=== PATIENT | male | born 1940 | race Caucasian/White ===

== ENCOUNTER → 2017-07-07 | Outpatient (CLI) | payer MEDICARE ==
[2017-07-07 10:11] LABS: ALANINE AMINOTRANSFERASE 36 U/L (21-72); ALBUMIN 4.5 g/dL (3.5-5.0); ALKALINE PHOSPHATASE 70 U/L (38-126); ANION GAP 13 (5-19); ASPARTATE AMINO TRANSFERASE 36 U/L (17-59); BILIRUBIN,DIRECT 0.4 mg/dL (0.0-0.4); BILIRUBIN,TOTAL 1.4 mg/dL (0.2-1.3); BLOOD UREA NITROGEN 18 mg/dL (7-20); CALCIUM 10.1 mg/dL (8.4-10.2); CARBON DIOXIDE 27 mmol/L (22-30); CHLORIDE 97 mmol/L (98-107); CHOLESTEROL 122.11 mg/dL (0-200); CREATININE RESULT 0.96 mg/dL (0.52-1.25); Direct HDL 41 mg/dL (>40); GLUCOSE 92 mg/dL (75-110); POTASSIUM 4.9 mmol/L (3.6-5.0); TOTAL PROTEIN 7.8 g/dL (6.3-8.2); TRIGLYCERIDES 142 mg/dL (<150)
[2017-07-07 10:22] LABS: DIRECT LDL 56 mg/dL (<100)
== END ==
LOC: OD 08:41
PROVIDERS: ATTEND Internal Medicine Cardiovascular Disease
DX: E78.00 Pure hypercholesterolemia, unspecified (principal); I10 Essential (primary) hypertension; E13.9 Other specified diabetes mellitus without complications; Z79.899 Other long term (current) drug therapy
CPT/HCPCS: 36415; 80048; 80061; 80076; 83036; 83735; 84443

== ENCOUNTER 2018-05-08 07:53 | Observation (INO) | payer MEDICARE ==
[2018-05-08 08:43] LABS: ABSOLUTE LYMPHOCYTES (AUTO) 0.9 10^3/uL (0.5-4.7); ABSOLUTE MONOCYTES (AUTO) 1.3 10^3/uL (0.1-1.4); ABSOLUTE NEUT (AUTO) 9.7 10^3/uL (1.7-8.2); BASOPHILS % (AUTO) 0.3 % (0-2); HEMATOCRIT 36.8 % (37.9-51.0); HEMOGLOBIN 12.5 g/dL (13.5-17.0); LYMPHOCYTES % (AUTO) 7.5 % (13-45); MEAN CORPUSCULAR HEMOGLOBIN 32.5 pg (27.0-33.4); MEAN CORPUSCULAR HGB CONC 34.1 g/dL (32.0-36.0); MEAN CORPUSCULAR VOLUME 95 fl (80-97); PLATELET COUNT 196 10^3/uL (150-450); RED BLOOD COUNT 3.86 10^6/uL (4.35-5.55); SEGMENTED NEUTROPHILS % (AUTO) 81.2 % (42-78); TOTAL CELLS COUNTED % (AUTO) 100 %
--- NOTE | 2018-05-08 08:50 | RADIOLOGY REPORT (SQ) ---
EXAM DESCRIPTION: CT HEAD WITHOUT COMPLETED DATE/TIME: 05/08/2018 8:19 am REASON FOR STUDY: AMS COMPARISON: None. TECHNIQUE: Axial images acquired through the brain without intravenous contrast. Images reviewed wi th bone, brain and subdural windows. Additional sagittal and coronal reconstructions were generated. Images stored on PACS. All CT scanners at this facility use dose modulation, iterative reconstruction, and/or weight based d osing when appropriate to reduce radiation dose to as low as reasonably achievable (ALARA). [facility]: Dose Right [facility]: CareDose [facility]: Dose Right [facility]: Teradose 4D [facility]: Clique Intelligence RADIATION DOSE: CT Rad equipment meets quality standard of care and radiation dose reduction techniq ues were employed. CTDIvol: 53.2 mGy. DLP: 1017 mGy-cm. mGy. LIMITATIONS: None. FINDINGS: VENTRICLES: Normal size and contour. The cisterns are patent. CEREBRUM: Chronic mild small vessel ischemic changes. No masses. No hemorrhage. No midline shift. No evidence for acute infarction CEREBELLUM: No masses. No hemorrhage. No alteration of density. No evidence for acute infarction. EXTRAAXIAL SPACES: Mild age related involutional changes. No fluid collections. No masses. ORBITS AND GLOBE: No intra- or extraconal masses. Normal contour of globe without masses. CALVARIUM: No fracture. PARANASAL SINUSES: No fluid or mucosal thickening. SOFT TISSUES: No mass or hematoma. OTHER: No other significant finding. IMPRESSION: 1. No acute intracranial abnormality. 2. Mild atrophy and chronic small vessel ischemic changes. EVIDENCE OF ACUTE STROKE: NO. COMMENT: Quality ID # [id number]: Final reports with documentation of one or more dose reduction techniques (e.g., Automated exposure control, adjustment of the mA and/or kV according to patient size, use of iterative reconstruction technique) TECHNICAL DOCUMENTATION: JOB ID: [id number] [email or web address]- All Rights Reserved Reading location - IP/workstation name: [email or web address]
--- NOTE | 2018-05-08 08:52 | RADIOLOGY REPORT (SQ) ---
EXAM DESCRIPTION: CHEST SINGLE VIEW COMPLETED DATE/TIME: 05/08/2018 8:08 am REASON FOR STUDY: bed 16 sepsis protocol COMPARISON: None. EXAM PARAMETERS: NUMBER OF VIEWS: One view. TECHNIQUE: Single frontal radiographic view of the chest acquired. RADIATION DOSE: NA LIMITATIONS: None. FINDINGS: LUNGS AND PLEURA: Slight scarring or atelectasis at the left lung base. No acute pulmona ry consolidation. No pneumothorax or pleural effusion. MEDIASTINUM AND HILAR STRUCTURES: No masses. Contour normal. HEART AND VASCULAR STRUCTURES: Heart normal in size. Normal vasculature. BONES: No acute findings. HARDWARE: None in the chest. OTHER: No other significant finding. IMPRESSION: 1. Slight atelectasis or scarring at the left base. 2. No acute pulmonary consolidation. TECHNICAL DOCUMENTATION: JOB ID: [id number] [employer]- All Rights Reserved Reading location - IP/workstation name: [email or web address]
[2018-05-08 08:53] LABS: INTERNATIONAL RATION (INR) 1.08; PROTHROMBIN TIME 14.6 SEC (11.4-15.4)
[2018-05-08 09:01] LABS: ALANINE AMINOTRANSFERASE 25 U/L (21-72); ALBUMIN 3.6 g/dL (3.5-5.0); ALKALINE PHOSPHATASE 61 U/L (38-126); ANION GAP 9 (5-19); ASPARTATE AMINO TRANSFERASE 29 U/L (17-59); BILIRUBIN,DIRECT 0.4 mg/dL (0.0-0.4); BILIRUBIN,TOTAL 1.2 mg/dL (0.2-1.3); BLOOD UREA NITROGEN 20 mg/dL (7-20); CALCIUM 8.6 mg/dL (8.4-10.2); CARBON DIOXIDE 25 mmol/L (22-30); CHLORIDE 98 mmol/L (98-107); GLUCOSE 143 mg/dL (75-110); POTASSIUM 3.8 mmol/L (3.6-5.0)
[2018-05-08] MEDS ORDERED: NORMAL SALINE 1000 ML 1,000 ML IV ONE (09:25)
[2018-05-08] MEDS ORDERED: CEFTRIAXONE INJ 1000 MG VIAL IV ONE (09:57)
--- NOTE | 2018-05-08 10:24 | ER Document Report ---
ED General - General Chief Complaint: Nausea/Vomiting Stated Complaint: VOMITING Time Seen by Provider: 05/08/18 09:23 TRAVEL OUTSIDE OF THE [place] IN LAST 30 DAYS: No - HPI Notes: Patient is a 77-year-old male that presents to the emergency department for chief complaint of lightheadedness and diaphoresis. Patient's family states that this morning he appeared to be diaphoretic and was slumping over in his chair. They denied any full loss of consciousness. Patient was hypotensive when his family member took his blood pressure with a systolic in the 80s. EMS was called and had a blood pressure reading of 83/56 at home. After receiving 250 mL of IV normal saline patient states he is feeling better. He reports one episode of emesis while in transport. He states his lightheadedness is worse when he stands up. He does report not feeling well recently and may have had a fever last night. He denies any chest pain, cough, shortness of breath, abdominal pain, dysuria and urinary frequency. Past Medical History: Diabetes, hypertension, hyperlipidemia Past Surgical History: Negative Social History: Denies drugs alcohol and tobacco Family History: Reviewed and noncontributory for presenting illness Allergies: Reviewed, see documented allergy list. REVIEW OF SYSTEMS: CONSTITUTIONAL : No fever No chills diaphoresis lightheadedness EENT: No vision changes No congestion No sore throat CARDIOVASCULAR: No chest pain No palpitations RESPIRATORY: No shortness of breath No cough No difficulty breathing GASTROINTESTINAL: No abdominal pain nausea vomiting No diarrhea GENITOURINARY: No dysuria No hematuria No difficulty urinating MUSCULOSKELETAL: No back pain No leg pain No arm pain SKIN: No rashes No lesions LYMPHATIC: No swollen, enlarged glands. NEUROLOGICAL: No lightheadedness No headache No weakness No paresthesias PSYCHIATRIC: No anxiety No depression PHYSICAL EXAMINATION: Vital signs reviewed, nursing noted reviewed. GENERAL: Mildly diaphoretic, ill-appearing HEAD: Atraumatic, normocephalic. EYES: Eyes appear normal, extraocular movements intact, sclera anicteric, conjunctiva are normal. ENT: nares patent, oropharynx clear without exudates. Moist mucous membranes. NECK: Normal range of motion, supple without lymphadenopathy LUNGS: Breath sounds clear to auscultation bilaterally and equal. No wheezes rales or rhonchi. HEART: Regular rate and rhythm without murmurs ABDOMEN: Soft, nontender, normoactive bowel sounds. No rebound, guarding, or rigidity. No masses appreciated. EXTREMITIES: Nontender, good range of motion, no pitting or edema. NEUROLOGICAL: No focal neurological deficits. Moves all extremities spontaneously Motor and sensory grossly intact on exam. PSYCH: Normal mood, normal affect. SKIN: Warm, Dry, normal turgor, no rashes or lesions noted on exposed skin - Related Data Allergies/Adverse Reactions: No Known Allergies Allergy (Unverified 04/17/13 11:42) Past Medical History - Social History Smoking Status: Unknown if Ever Smoked Chew tobacco use (# tins/day): No Frequency of alcohol use: None Drug Abuse: None Family History: Reviewed & Not Pertinent Patient has suicidal ideation: No Patient has homicidal ideation: No - Past Medical History Cardiac Medical History: Reports: Hx Hypertension - medication Denies: Hx Heart Attack Pulmonary Medical History: Denies: Hx Asthma Neurological Medical History: Denies: Hx Cerebrovascular Accident, Hx Seizures Renal/ Medical History: Denies: Hx Peritoneal Dialysis GI Medical History: Denies: Hx Hepatitis, Hx Hiatal Hernia, Hx Ulcer Infectious Medical History: Denies: Hx Hepatitis Past Surgical History: Denies: Hx Open Heart Surgery, Hx Pacemaker Review of Systems - Review of Systems Notes: Dictated Physical Exam - Vital signs Vitals: Temp 97.4 F 05/08/18 07:57 - Notes Notes: Dictated Course - Re-evaluation Re-evalutation: 05/08/18 10:24 Vitals reviewed. Patient's blood pressure is stabilized after IV hydration. He is still feeling lightheaded. Orthostatics negative. EKG shows no acute ischemia. Patient does have a WBC count of 12 and is meeting sepsis criteria. Chest x-ray shows no pneumonia. Patient was given Rocephin for possible urinary tract infection. Blood cultures were obtained. Lactate is normal. 05/08/18 11:37 On reevaluation patient is resting comfortably in the cot. He has no complaints at this time. He is still mildly diaphoretic. Patient has had a heart rate in the 60s and 70s since arrival. His blood pressure has improved with IV hydration. Upon reviewing notes patient had a heart rate of 21 per EMS. EKG today does not show any heart block and he has not had any recurrence of this bradycardia. Lab work is unremarkable. There is no urinary tract infection and his lactate is normal. They currently do not suspect that patient is septic. Patient will be admitted to the hospital for telemetry monitoring of his transient bradycardia and hypotension. Case discussed with Dr. Wagner who accepted admission. Patient and family in agreement with the plan. Laboratory 05/08/18 05/08/18 05/08/18 08:28 08:28 08:28 WBC 12.0 H RBC 3.86 L Hgb 12.5 L Hct 36.8 L MCV 95 MCH 32.5 MCHC 34.1 RDW 14.0 Plt Count 196 Seg Neutrophils % 81.2 H Lymphocytes % 7.5 L Monocytes % 11.0 Eosinophils % 0.0 Basophils % 0.3 Absolute Neutrophils 9.7 H Absolute Lymphocytes 0.9 Absolute Monocytes 1.3 Absolute Eosinophils 0.0 Absolute Basophils 0.0 PT 14.6 INR 1.08 Sodium 132.0 L Potassium 3.8 Chloride 98 Carbon Dioxide 25 Anion Gap 9 BUN 20 Creatinine 1.20 Est GFR ( Amer) > 60 Est GFR (Non-Af Amer) 59 L Glucose 143 H Lactic Acid Calcium 8.6 Total Bilirubin 1.2 Direct Bilirubin 0.4 Neonat Total Bilirubin Not Reportable Neonat Direct Bilirubin Not Reportable Neonat Indirect Bili Not Reportable AST 29 ALT 25 Alkaline Phosphatase 61 Troponin I Total Protein 7.0 Albumin 3.6 Urine Color Urine Appearance Urine pH Ur Specific [place] Urine Protein Urine Glucose (UA) Urine Ketones Urine Blood Urine Nitrite Urine Bilirubin Urine Urobilinogen Ur Leukocyte Esterase Urine WBC (Auto) Urine RBC (Auto) Urine Mucus (Auto) Urine Ascorbic Acid 05/08/18 05/08/18 05/08/18 08:28 09:01 10:37 WBC RBC Hgb Hct MCV MCH MCHC RDW Plt Count Seg Neutrophils % Lymphocytes % Monocytes % Eosinophils % Basophils % Absolute Neutrophils Absolute Lymphocytes Absolute Monocytes Absolute Eosinophils Absolute Basophils PT INR Sodium Potassium Chloride Carbon Dioxide Anion Gap BUN Creatinine Est GFR ( Amer) Est GFR (Non-Af Amer) Glucose Lactic Acid 1.5 Calcium Total Bilirubin Direct Bilirubin Neonat Total Bilirubin Neonat Direct Bilirubin Neonat Indirect Bili AST ALT Alkaline Phosphatase Troponin I < 0.012 Total Protein Albumin Urine Color YELLOW Urine Appearance CLEAR Urine pH 6.0 Ur Specific [place] 1.011 Urine Protein NEGATIVE Urine Glucose (UA) NEGATIVE Urine Ketones NEGATIVE Urine Blood NEGATIVE Urine Nitrite NEGATIVE Urine Bilirubin NEGATIVE Urine Urobilinogen NEGATIVE Ur Leukocyte Esterase NEGATIVE Urine WBC (Auto) 0 Urine RBC (Auto) 0 Urine Mucus (Auto) RARE Urine Ascorbic Acid NEGATIVE Head CT 05/08/18 00:00 IMPRESSION: 1. No acute intracranial abnormality. 2. Mild atrophy and chronic small vessel ischemic changes. EVIDENCE OF ACUTE STROKE: NO. Chest X-Ray 05/08/18 07:56 IMPRESSION: 1. Slight atelectasis or scarring at the left base. 2. No acute pulmonary consolidation. - Vital Signs Vital signs: Temp Pulse Resp BP Pulse Ox 97.4 F 66 21 H 116/49 L 99 05/08/18 07:57 05/08/18 09:17 05/08/18 09:10 05/08/18 09:17 05/08/18 09:10 - Laboratory Result Diagrams: 05/08/18 08:28 05/08/18 08:28 Laboratory results interpreted by me: 05/08/18 05/08/18 08:28 08:28 WBC 12.0 H RBC 3.86 L Hgb 12.5 L Hct 36.8 L Seg Neutrophils % 81.2 H Lymphocytes % 7.5 L Absolute Neutrophils 9.7 H Sodium 132.0 L Est GFR (Non-Af Amer) 59 L Glucose 143 H - EKG Interpretation by Me Additional EKG results interpreted by me: 05/08/18 10:25 0 850: Normal sinus rhythm, rate 64, normal axis, no ectopy, no ST elevation. Discharge - Discharge Clinical Impression: Transient hypotension, Bradycardia Vomiting Qualifiers: Vomiting type: unspecified Vomiting Intractability: non-intractable Nausea presence: with nausea Qualified Code(s): R11.2 - Nausea with vomiting, unspecified Condition: Stable Disposition: ADMITTED OBSERVATION Admitting Provider: Hospitalist Unit Admitted: Telemetry Referrals: TAMAR RUSH MD [Primary Care Provider] - Follow up as needed
[2018-05-08 11:03] LABS: APPEARANCE,URINE CLEAR; BILIRUBIN,URINE NEGATIVE (NEGATIVE); COLOR,URINE YELLOW; GLUCOSE, URINE NEGATIVE (NEGATIVE); KETONES,URINE NEGATIVE (NEGATIVE); LEUKOCYTE ESTERASE,URINE NEGATIVE (NEGATIVE); NITRITE,URINE NEGATIVE (NEGATIVE); PROTEIN,URINE NEGATIVE (NEGATIVE); URINE SPECIFIC GRAVITY 1.011; UROBILINOGEN,URINE NEGATIVE mg/dL (<2.0)
[2018-05-08] MEDS ORDERED: MAG HYDROX/AL HYDROX/SIMETH SUSP 30 ML UDCUP PO PRN (12:11)
[2018-05-08] MEDS ORDERED: ONDANSETRON HCL INJ/PF 4 MG/2 ML SDV IV PRN (12:11)
[2018-05-08] MEDS ORDERED: DEXTROSE 50%-WATER 25 GM/50 ML DISP.SYRIN IV PRN ×2 (12:23)
[2018-05-08] MEDS ORDERED: INSULIN LISPRO 100 UNIT/ML 3 ML VIAL SUBCUT PRN (12:23)
[2018-05-08] MEDS ORDERED: DEXTROSE 40% GEL 15 GM TUBE PO PRN ×2 (12:23)
[2018-05-08] MEDS ORDERED: GLUCAGON,HUMAN RECOMB 1 MG INJ IM PRN (12:23)
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
[2018-05-08] MEDS ORDERED: ENOXAPARIN SODIUM INJ 40 MG/0.4 ML DISP.SYRIN SUBCUT ONE (13:00)
--- NOTE | 2018-05-08 16:06 | EKG REPORT ---
SEVERITY:- NORMAL ECG - SINUS RHYTHM : Confirmed by: Kathleen Hall 08-May-2018 16:06:15
[2018-05-08] MEDS: RINGERS SOLUTION,LACTATED 1,000 ML IV PRN (17:38)
--- NOTE | 2018-05-08 19:42 | XCELERA REPORT ---
[address] [address] Transthoracic Echocardiogram Report Name: GRISELDA PERAZA Age: 77 yrs Gender: Male : 1940 Patient Status: Inpatient [address] Study Date: 05/08/2018 02:17 PM Procedure: A two-dimensional transthoracic echocardiogram with color flow and Doppler was performed. Study Quality: Fair. Reason For Study: Murmur History: MURMUR. Ordering Physician: DOLLY ARGUETA Performed By: Valerie Zhao Interpretation Summary Study Quality: Fair. The left ventricle is normal in size. There is normal left ventricular wall thickness. LV EF is > than 60% Left ventricular systolic function is normal. Doppler measurements suggest impaired left ventricular relaxation, which is associated with grade I/IV or mild diastolic dysfunction The left ventricular wall motion is normal. There is no thrombus. The right ventricle is normal in size and function. The right atrium is normal. The left atrial size is normal. The interatrial septum is intact with no evidence for an atrial septal defect. There is no evidence of mitral valve prolapse. There is no vegetation seen on the mitral valve. There is no mitral valve stenosis. There is a trace amount of mitral regurgitation There is no aortic valvular vegetation. There is mild aortic stenosis There is a peak gradient of 18.2 mm of Hg. There is no LVOT obstruction. There is a mild amount of aortic regurgitation There is no tricuspid stenosis. No tricuspid regurgitation. Unable to calculate RVSP due lack of TR jet. There is no pulmonic valvular stenosis. There is no pulmonic valvular regurgitation. The aortic root is normal size. There is no pericardial effusion. MMode/2D Measurements & Calculations RVDd: 3.1 cm LVIDd: 5.4 cm FS: 37.5 % Ao root diam: 3.1 cm IVSd: 0.73 cm LVIDs: 3.4 cm EDV(Teich): Ao root area: LVPWd: 0.81 cm 141.3 ml 7.4 cm2 ESV(Teich): 46.5 ml EF(Teich): 67.1 % LVOT diam: 2.0 cm EDV(MOD-sp4): SV(MOD-sp4): LVOT area: 75.6 ml 48.2 ml 3.2 cm2 ESV(MOD-sp4): 27.4 ml EF(MOD-sp4): 63.8 % Doppler Measurements & Calculations MV E max dav: MV dec slope: Ao V2 max: AI max dav: 67.6 cm/sec 353.0 cm/sec2 211.4 cm/sec 256.0 cm/sec MV A max dav: MV dec time: Ao max PG: AI max P.2 mmHg 77.5 cm/sec 0.19 sec 18.2 mmHg AI dec slope: MV E/A: 0.87 Ao V2 mean: 153.2 cm/sec2 143.3 cm/sec AI P1/2t: 489.6 msec Ao mean P.5 mmHg Ao V2 VTI: 41.9 cm ALONZO(I,D): 1.6 cm2 ALONZO(V,D): 1.5 cm2 LV V1 max PG: SV(LVOT): 66.1 ml PA V2 max: Pulm Sys Dav: 4.1 mmHg 84.9 cm/sec 66.6 cm/sec LV V1 mean PG: PA max PG: Pulm Levy Dav: 2.2 mmHg 2.9 mmHg 40.9 cm/sec LV V1 max: Pulm A Revs Dav: 101.1 cm/sec 27.4 cm/sec LV V1 mean: Pulm A Revs Dur: 70.9 cm/sec 0.11 sec LV V1 VTI: 20.6 cm Pulm S/D: 1.6 Left Ventricle The left ventricle is normal in size. There is normal left ventricular wall thickness. LV EF is > than 60%. Left ventricular systolic function is normal. Doppler measurements suggest impaired left ventricular relaxation, which is associated with grade I/IV or mild diastolic dysfunction. The left ventricular wall motion is normal. There is no thrombus. Right Ventricle The right ventricle is normal in size and function. Atria The right atrium is normal. The left atrial size is normal. The interatrial septum is intact with no evidence for an atrial septal defect. Mitral Valve There is no evidence of mitral valve prolapse. There is no vegetation seen on the mitral valve. There is no mitral valve stenosis. There is a trace amount of mitral regurgitation. Aortic Valve There is no aortic valvular vegetation. There is mild aortic stenosis. There is a peak gradient of 18.2 mm of Hg. There is no LVOT obstruction. There is a mild amount of aortic regurgitation. Tricuspid Valve There is no tricuspid stenosis. No tricuspid regurgitation. Unable to calculate RVSP due lack of TR jet. Pulmonic Valve There is no pulmonic valvular stenosis. There is no pulmonic valvular regurgitation. Great Vessels The aortic root is normal size. Effusions There is no pericardial effusion. : DOLLY ARGUETA Lakshmi
[2018-05-08] MEDS: FAMOTIDINE 20 MG TABLET PO SCH (21:18)
[2018-05-08] MEDS: ACETAMINOPHEN 325 MG TABLET PO PRN (21:35)
[2018-05-09] MEDS: ACETAMINOPHEN 325 MG TABLET PO PRN ×2 (01:55→20:33)
[2018-05-09 06:38] LABS: ABSOLUTE BASOPHILS # (AUTO) 0.1 10^3/uL (0.0-0.2); ABSOLUTE LYMPHOCYTES (AUTO) 1.4 10^3/uL (0.5-4.7); ABSOLUTE MONOCYTES (AUTO) 1.7 10^3/uL (0.1-1.4); ABSOLUTE NEUT (AUTO) 7.4 10^3/uL (1.7-8.2); BASOPHILS % (AUTO) 0.8 % (0-2); EOSINOPHILS % (AUTO) 0.4 % (0-6); HEMATOCRIT 36.2 % (37.9-51.0); HEMOGLOBIN 12.7 g/dL (13.5-17.0); LYMPHOCYTES % (AUTO) 12.8 % (13-45); MEAN CORPUSCULAR HEMOGLOBIN 33.1 pg (27.0-33.4); MEAN CORPUSCULAR HGB CONC 35.2 g/dL (32.0-36.0); MEAN CORPUSCULAR VOLUME 94 fl (80-97); PLATELET COUNT 177 10^3/uL (150-450); RED BLOOD COUNT 3.84 10^6/uL (4.35-5.55); RED CELL DISTRIBUTION WIDTH 13.9 % (11.5-14.0); TOTAL CELLS COUNTED % (AUTO) 100 %; WHITE BLOOD COUNT 10.6 10^3/uL (4.0-10.5)
[2018-05-09 06:56] LABS: ANION GAP 8 (5-19); BLOOD UREA NITROGEN 21 mg/dL (7-20); CALCIUM 8.8 mg/dL (8.4-10.2); CARBON DIOXIDE 23 mmol/L (22-30); CHLORIDE 104 mmol/L (98-107); GLUCOSE 100 mg/dL (75-110); POTASSIUM 3.9 mmol/L (3.6-5.0); SODIUM 134.5 mmol/L (137-145)
[2018-05-09] MEDS: FAMOTIDINE 20 MG TABLET PO SCH ×2 (09:58→21:13)
[2018-05-09] MEDS: ASPIRIN 81 MG TABLET, CHEWABLE PO SCH (09:58)
[2018-05-09] MEDS: METFORMIN HCL 500 MG TABLET PO SCH ×2 (09:58→17:24)
[2018-05-09] MEDS: TAMSULOSIN HCL 0.4 MG CAP.SR.24H PO SCH (09:58)
[2018-05-09] MEDS: ENOXAPARIN SODIUM INJ 40 MG/0.4 ML DISP.SYRIN SUBCUT SCH (09:58)
[2018-05-09] MEDS ORDERED: CEFTRIAXONE SODIUM 1,000 MG in NORMAL SALINE 50 ML IV SCH (10:00)
[2018-05-09] MEDS ORDERED: CEFTRIAXONE 1 GM/D5W RTU 1 GM/50 ML RTUPB IV SCH (10:00)
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
[2018-05-09] MEDS: DOXYCYCLINE HYCLATE 100 MG TABLET PO SCH (17:24)
--- NOTE | 2018-05-09 18:22 | Progress Note ---
Provider Note Provider Note: ID Consult Note Asked to review patient's chart by Dr Wagner and discussed patient briefly via telephone. Pt not seen or examined. Mr. Escobar is a 77 year old man who presented to [facility] on 05/08/18 via EMS after having presyncopal symptoms at home. Pt reported feeling ill for the past week with headache, subjective fever and chills. He had an episode of lightheadedness the night before presentation when getting up to go to the bathroom and another episode the morning of admission when he felt lightheaded but did not lose consciousness. The patient's found his BP on a home cuff was in the 80s systolic. EMS found the patient's HR to be 21 at some point when he had an episode of vomiting on the way to the ED. The patient denied any CP, SOB, cough, abdominal pain, dysuria or increased urinary frequency. 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 Although afebrile on presentation, overnight the patient had a fever of 101 F. Exam on admission was unremarkable or WNL apart from a systolic murmur. Labs on admission included mild leukocytosis with WBC 12k, normal platelet count , normal LFTs, SCr 0.86, normal TSH, elevated ESR 48 and elevated CRP 70. U/A showed no pyuria. UCx is negative x 1 day. BCx are negative x 24h. CXR showed no acute cardiopulmonary process. Transthoracic echocardiogram was read as showing no mitral valve vegetation, trace MR, mild , and mild AR with preserved EF. Rocephin was started empirically on admission while awaiting results of studies. Impression Nonspecific febrile illness - possible viral syndrome vs tick borne disease. Agree with considerations that are being presently investigated. - West Nile virus is certainly a consideration considering the reported mosquito bites and the most common symptomatic presentation of WNV infection being that of a nonspecific febrile illness (fever, headache, myalgia). After about a week or so of symptoms, the serum IgM would be expected to be positive. - There have been scattered cases of influenza in [place] at this point in the year already reported. Accompanying respiratory tract symptoms would be expected, but presentations can vary, and particularly in elderly adults signs/symptoms can be more subtle. - With outdoors exposure, tickborne illnesses endemic to [facility] that also have to be kept in mind are ehrlichiosis and RMSF. Both tend to be accompanied by lab abnormalities of transaminitis and thrombocytopenia. Leukopenia is more common a feature of ehrlichiosis than RMSF but usually lacks rash, in contrast to RMSF in which a rash is typically seen after several days of illness. The patient has no rash, leukopenia, transaminitis or thrombocytopenia or recollection of a tick bite to suggest that one or the other of these etiologies is particularly likely. However, both can cause nonspecific febrile illnesses initially, both are plausible with outdoors exposure in [place] in the summer, and both have the potential to evolve into severe diseases. - Without hx of travel to Lyme endemic area ([place] states further north of [place], [place], [place]), doubt Lyme disease is likely Recommendations - Discontinue Rocephin given lack of typical bacterial etiology apparent based on signs/symptoms, CXR, BCx, U/A and UCx - Consider starting doxycycline 100 mg BID x 7 days; if Ehrlichiosis or RMSF typically clinical improvement is manifest fairly rapidly - Send RMSF serologies (if positive, convalescent IgG would need to be repeated by outpatient provider in 2-3 weeks after sx onset to document 4 fold rise; IgM can have false positives, and single positive IgG is also plagued by cross reactivity with nonpathogenic rickettsial exposures) - Also send PCR and/or serologies for Ehrlichiosis - For evaluation of influenza, an antigen or molecular test of a nasopharyngeal specimen would be helpful. I believe that the lab at [facility] can do a rapid antigen test. Serology is limited in that paired acute and convalescent sera are generally required for diagnosis - allows for a retrospective diagnosis but would not be able to guide clinical decision making during this hospitalization. Kem Mead MD [facility] Infectious Diseases pager [phone]
[2018-05-09] MEDS ORDERED: SIMVASTATIN 40 MG TABLET PO SCH (22:00)
[2018-05-10] MEDS: RINGERS SOLUTION,LACTATED 1,000 ML IV PRN (00:22)
[2018-05-10] MEDS: DOXYCYCLINE HYCLATE 100 MG TABLET PO SCH (05:13)
[2018-05-10 07:15] LABS: LYME DISEASE IGM AB <0.80 index (0.00-0.79); WEST NILE VIRUS IGG Negative (Negative); WEST NILE VIRUS IGM Negative (Negative)
[2018-05-10] MEDS: FAMOTIDINE 20 MG TABLET PO SCH (09:09)
[2018-05-10] MEDS: TAMSULOSIN HCL 0.4 MG CAP.SR.24H PO SCH (09:10)
[2018-05-10] MEDS: ASPIRIN 81 MG TABLET, CHEWABLE PO SCH (09:10)
[2018-05-10] MEDS: METFORMIN HCL 500 MG TABLET PO SCH (09:12)
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
[2018-05-10 11:19] VITALS: BP 149/56
[2018-05-10] MEDS: ENOXAPARIN SODIUM INJ 40 MG/0.4 ML DISP.SYRIN SUBCUT SCH (11:39)
[2018-05-11 22:37] LABS: INFLUENZA A AB (SERUM) CF 1:32 (Neg:<1:8)
[2018-05-12 11:05] LABS: ROCKY MTN SPOTTED FEV IGG EIA Negative (Negative); ROCKY MTN SPOTTED FEVER IGM AB 0.23 index (0.00-0.89)
[2018-05-12 11:06] LABS: INFLUENZA B AB (SERUM) CF Negative (Neg:<1:8)
[2018-05-15 07:37] LABS: A. PHAGOCYTOPHILUM PCR Negative (Negative); E. CHAFFEENSIS PCR Negative (Negative)
== END 2018-05-10 12:11 | disposition home or self-care (01) ==
LOC: ER 07:53 → EH 12:10 → 5 16:20
PROVIDERS: ADMIT Emergency Medicine; ATTEND Emergency Medicine
DX: R55 Syncope and collapse (principal); D72.829 Elevated white blood cell count, unspecified; I49.9 Cardiac arrhythmia, unspecified; N40.1 Benign prostatic hyperplasia with lower urinary tract symptoms; R35.1 Nocturia; E11.649 Type 2 diabetes mellitus with hypoglycemia without coma; I35.0 Nonrheumatic aortic (valve) stenosis; R50.9 Fever, unspecified; R51 Headache; I95.9 Hypotension, unspecified; E78.5 Hyperlipidemia, unspecified; R11.2 Nausea with vomiting, unspecified; R61 Generalized hyperhidrosis; Z20.828 Contact with and (suspected) exposure to other viral communicable diseases; T14.8XXA Other injury of unspecified body region, initial encounter; W57.XXXA Bitten or stung by nonvenomous insect and other nonvenomous arthropods, initial encounter; Z79.899 Other long term (current) drug therapy; Z79.84 Long term (current) use of oral hypoglycemic drugs
CPT/HCPCS: 93005; 99285; 96372; 96361; 96365; 87798; 87797; 36415 ×2; 87040; 87086; 86710 ×2; 82962 ×3; 83690; 83735; 84100; 84443; 85025 ×2; 85652; 85610; 86140; 80048; 80053; 81001; 84484 ×2; 86757 ×2; 83036; 83605; 86788; 86789; 86618 ×2; 86617 ×2; 93306; 71045; 70450; 93010; G0378 ×4; A9270 ×13; J1650 ×2; J0696 ×2

== ENCOUNTER → 2018-05-22 | Outpatient (CLI) | payer MEDICARE ==
[2018-05-22 09:48] LABS: ABSOLUTE BASOPHILS # (AUTO) 0.1 10^3/uL (0.0-0.2); ABSOLUTE EOSINOPHILS # (AUTO) 0.1 10^3/uL (0.0-0.6); ABSOLUTE LYMPHOCYTES (AUTO) 2.2 10^3/uL (0.5-4.7); ABSOLUTE MONOCYTES (AUTO) 0.6 10^3/uL (0.1-1.4); ABSOLUTE NEUT (AUTO) 3.8 10^3/uL (1.7-8.2); BASOPHILS % (AUTO) 1.2 % (0-2); EOSINOPHILS % (AUTO) 1.3 % (0-6); HEMATOCRIT 40.2 % (37.9-51.0); HEMOGLOBIN 13.7 g/dL (13.5-17.0); LYMPHOCYTES % (AUTO) 32.4 % (13-45); MEAN CORPUSCULAR HEMOGLOBIN 32.1 pg (27.0-33.4); MEAN CORPUSCULAR HGB CONC 34.1 g/dL (32.0-36.0); MEAN CORPUSCULAR VOLUME 94 fl (80-97); MONOCYTES % (AUTO) 8.9 % (3-13); PLATELET COUNT 377 10^3/uL (150-450); RED BLOOD COUNT 4.26 10^6/uL (4.35-5.55); RED CELL DISTRIBUTION WIDTH 14.4 % (11.5-14.0); SEGMENTED NEUTROPHILS % (AUTO) 56.2 % (42-78); TOTAL CELLS COUNTED % (AUTO) 100 %; WHITE BLOOD COUNT 6.7 10^3/uL (4.0-10.5)
== END ==
LOC: OD 08:47
PROVIDERS: ATTEND Physician Assistant
DX: D72.829 Elevated white blood cell count, unspecified (principal)
CPT/HCPCS: 36415; 85025

== ENCOUNTER → 2018-12-18 | Outpatient (CLI) | payer MEDICARE ==
[2018-12-18 08:03] LABS: HEMATOCRIT 40.3 % (37.9-51.0); HEMOGLOBIN 13.6 g/dL (13.5-17.0); MEAN CORPUSCULAR HEMOGLOBIN 31.8 pg (27.0-33.4); MEAN CORPUSCULAR HGB CONC 33.8 g/dL (32.0-36.0); MEAN CORPUSCULAR VOLUME 94 fl (80-97); PLATELET COUNT 203 10^3/uL (150-450); RED BLOOD COUNT 4.28 10^6/uL (4.35-5.55); WHITE BLOOD COUNT 6.3 10^3/uL (4.0-10.5)
[2018-12-18 08:29] LABS: ALANINE AMINOTRANSFERASE 25 U/L (21-72); ALBUMIN 4.1 g/dL (3.5-5.0); ALKALINE PHOSPHATASE 61 U/L (38-126); ANION GAP 11 (5-19); ASPARTATE AMINO TRANSFERASE 36 U/L (17-59); BILIRUBIN,DIRECT 0.3 mg/dL (0.0-0.4); BILIRUBIN,TOTAL 0.8 mg/dL (0.2-1.3); BLOOD UREA NITROGEN 26 mg/dL (7-20); CARBON DIOXIDE 26 mmol/L (22-30); CHLORIDE 105 mmol/L (98-107); CHOLESTEROL 100.31 mg/dL (0-200); GLUCOSE 97 mg/dL (75-110); POTASSIUM 4.4 mmol/L (3.6-5.0); SODIUM 141.7 mmol/L (137-145); TOTAL PROTEIN 7.4 g/dL (6.3-8.2); TRIGLYCERIDES 84 mg/dL (<150)
[2018-12-18 08:40] LABS: DIRECT LDL 47 mg/dL (<100)
== END ==
LOC: LAB 07:47
PROVIDERS: ATTEND Internal Medicine Cardiovascular Disease
DX: I10 Essential (primary) hypertension (principal); E13.9 Other specified diabetes mellitus without complications; E78.00 Pure hypercholesterolemia, unspecified; I35.9 Nonrheumatic aortic valve disorder, unspecified; R55 Syncope and collapse; Z79.899 Other long term (current) drug therapy
CPT/HCPCS: 36415; 80048; 80061; 80076; 83036; 83735; 84443; 85027

== ENCOUNTER → 2019-05-25 | Outpatient (CLI) | payer MEDICARE ==
[2019-05-25 11:28] LABS: ANION GAP 11 (5-19); BLOOD UREA NITROGEN 17 mg/dL (7-20); CALCIUM 10.1 mg/dL (8.4-10.2); CARBON DIOXIDE 26 mmol/L (22-30); CHLORIDE 103 mmol/L (98-107); GLUCOSE 104 mg/dL (75-110); POTASSIUM 4.1 mmol/L (3.6-5.0)
== END ==
LOC: LAB 08:22
PROVIDERS: ATTEND Physician Assistant
DX: E03.9 Hypothyroidism, unspecified (principal); I10 Essential (primary) hypertension; Z79.899 Other long term (current) drug therapy
CPT/HCPCS: 36415; 80048; 84443

== ENCOUNTER 2019-07-07 19:24 | Emergency (ER) | payer MEDICARE ==
--- NOTE | 2019-07-07 19:56 | ER Document Report ---
ED Medical Screen (RME) - General Stated Complaint: HEAD PAIN/BLOOD PRESSURE ISSUES Time Seen by Provider: 07/07/19 19:49 Primary Care Provider: BRYSON BOSWELL PA-C [Primary Care Provider] - Follow up as needed Mode of Arrival: Ambulatory Information source: Patient Notes: Patient is a 78-year-old male presenting to the emergency department with sudden onset headache that began approximately 90 minutes prior to arrival. He reports it is a worse headache he has had in his life. He reports that he does not have a history of hypertension and his blood pressure is elevated. Patient's blood pressure is in the 190s systolic at the time of arrival. Patient is alert, oriented, answering questions, he does appear to be in some distress due to the pain. Patient upgraded to an BLADIMIR to, charge nurse made aware, patient being taken to CT. I have greeted and performed a rapid initial assessment of this patient. A comprehensive ED assessment and evaluation of the patient, analysis of test results and completion of the medical decision making process will be conducted by additional ED providers. I have specifically instructed the patient or family members with the patient to immediately return to any nursing staff should anything change in the patient's condition or with their chief complaint. This medical record was dictated with voice recognizing software. There may be grammatical, syntax errors that are unintended. TRAVEL OUTSIDE OF THE [place] IN LAST 30 DAYS: No - Related Data Allergies/Adverse Reactions: No Known Allergies Allergy (Unverified 05/08/18 12:58) Past Medical History - Past Medical History Cardiac Medical History: Reports: Hx Hypertension - medication Denies: Hx Heart Attack Pulmonary Medical History: Denies: Hx Asthma Neurological Medical History: Denies: Hx Cerebrovascular Accident, Hx Seizures Endocrine Medical History: Reports: Hx Diabetes Mellitus Type 2 Renal/ Medical History: Denies: Hx Peritoneal Dialysis GI Medical History: Denies: Hx Hepatitis, Hx Hiatal Hernia, Hx Ulcer Psychiatric Medical History: Denies: Hx Depression Infectious Medical History: Denies: Hx Hepatitis Past Surgical History: Reports: Other - Cataract. Denies: Hx Open Heart Surgery, Hx Pacemaker Doctor's Discharge - Discharge Referrals: BRYSON BOSWELL PA-C [Primary Care Provider] - Follow up as needed
--- NOTE | 2019-07-07 20:26 | RADIOLOGY REPORT (SQ) ---
EXAM DESCRIPTION: CT HEAD WITHOUT IV CONTRAST COMPLETED DATE/TME: 07/07/2019 19:55 CLINICAL HISTORY: 78 years, Male, headache, elevated BP COMPARISON: 05/08/2018 TECHNIQUE: Axial CT images of the brain were obtained without contrast. Sagittal and coronal reformats were performed. DLP 910 Images stored on PACS. All CT scanners at this facility use dose modulation, iterative reconstruction, and/or weight based dosing when appropriate to reduce radiation dose to as low as reasonably achievable (ALARA). [facility]: Dose Right [facility]: CareDose [facility]: Dose Right [facility]: Teradose 4D [facility]: [employer] LIMITATIONS: None. FINDINGS: There is diffuse subarachnoid hemorrhage, most notably along the basal cisterns and bilateral cerebral hemispheres, left greater than right. Subarachnoid hemorrhage is also noted within the left sylvian fissure, interpeduncular cistern, prepontine and left perimesencephalic cistern. There is a small amount of extra-axial hemorrhage along the anterior falx, a small portion of which may be subdural. There is no parenchymal hemorrhage, midline shift, or herniation. The nuñez-white matter differentiation is preserved. The paranasal sinuses and mastoid air cells are clear. No acute fracture is identified. IMPRESSION: Diffuse subarachnoid hemorrhage, most notably involving the basal cisterns and bilateral cerebral hemispheres, left greater than right. Further evaluation with a CTA is recommended. No midline shift or herniation. TECHNICAL DOCUMENTATION: Quality ID # [id number]: Final reports with documentation of one or more dose reduction techniques (e.g., Automated exposure control, adjustment of the mA and/or kV according to patient size, use of iterative reconstruction technique) copyright 2011 [employer]- All Rights Reserved
[2019-07-07] MEDS ORDERED: LABETALOL HCL INJ 20 MG/4 ML DISP.SYRIN IV ONE ×2 (20:37→20:39)
[2019-07-07 20:48] LABS: ABSOLUTE BASOPHILS # (AUTO) 0.1 10^3/uL (0.0-0.2); ABSOLUTE LYMPHOCYTES (AUTO) 1.4 10^3/uL (0.5-4.7); ABSOLUTE MONOCYTES (AUTO) 0.4 10^3/uL (0.1-1.4); ABSOLUTE NEUT (AUTO) 7.4 10^3/uL (1.7-8.2); BASOPHILS % (AUTO) 0.7 % (0-2); EOSINOPHILS % (AUTO) 0.2 % (0-6); HEMATOCRIT 39.1 % (37.9-51.0); HEMOGLOBIN 13.6 g/dL (13.5-17.0); LYMPHOCYTES % (AUTO) 14.6 % (13-45); MEAN CORPUSCULAR HEMOGLOBIN 32.8 pg (27.0-33.4); MEAN CORPUSCULAR HGB CONC 34.8 g/dL (32.0-36.0); MEAN CORPUSCULAR VOLUME 94 fl (80-97); MONOCYTES % (AUTO) 4.5 % (3-13); PLATELET COUNT 211 10^3/uL (150-450); RED BLOOD COUNT 4.15 10^6/uL (4.35-5.55); RED CELL DISTRIBUTION WIDTH 13.5 % (11.5-14.0); TOTAL CELLS COUNTED % (AUTO) 100 %; WHITE BLOOD COUNT 9.3 10^3/uL (4.0-10.5)
[2019-07-07 20:58] LABS: INTERNATIONAL RATION (INR) 0.99; PARTIAL THROMBOPLASTIN TIME 31.3 SEC (23.5-35.8); PROTHROMBIN TIME 13.1 SEC (11.4-15.4)
[2019-07-07 21:07] LABS: ALBUMIN 4.3 g/dL (3.5-5.0); ALKALINE PHOSPHATASE 72 U/L (38-126); ANION GAP 10 (5-19); ASPARTATE AMINO TRANSFERASE 40 U/L (17-59); BILIRUBIN,DIRECT 0.1 mg/dL (0.0-0.4); BILIRUBIN,TOTAL 0.6 mg/dL (0.2-1.3); BLOOD UREA NITROGEN 17 mg/dL (7-20); CALCIUM 10.2 mg/dL (8.4-10.2); CARBON DIOXIDE 25 mmol/L (22-30); CHLORIDE 100 mmol/L (98-107); GLUCOSE 116 mg/dL (75-110); POTASSIUM 4.3 mmol/L (3.6-5.0)
--- NOTE | 2019-07-07 21:13 | ER Document Report ---
Entered by RONIT CERDA SCRIBE 07/07/192014 Acting as scribe for:YONIS SMITH IV, MD ED General - General Chief Complaint: Headache, Worst Ever Stated Complaint: HEAD PAIN/BLOOD PRESSURE ISSUES Time Seen by Provider: 07/07/19 19:49 Primary Care Provider: BRYSON BOSWELL PA-C [Primary Care Provider] - Follow up as needed Mode of Arrival: Ambulatory Notes: Patient is a 78 year old male with history of hypertension presenting to the emergency department complaining of a headache with associated posterior neck pain. The headache onset was 1hr 45mins ago it was sudden. [employer] note patients blood pressure was 192 systolic, rerecorded upon entry recorded at 227/80. The last time the patient ate was lunch, he denies rotation of the neck exacerbating the pain. He takes an aspirin as needed, metformin, astatine, and flomax. Pertinent PMHx/PSHx: Hypertension, diabetes type II Call made to [facility] at 20:[address] Eric Yost at 20:49 who stated to keep the systolic under 160. Continue with Labetalol treatment. Nurse states that at 8:52 his BP was 168/68 after 10cc of Labetalol. TRAVEL OUTSIDE OF THE [place] IN LAST 30 DAYS: No - HPI Notes: This is a 78-year-old male with a history of hypertension, diabetes, hyperlipidemia that presents to the emergency department complaining of "worst headache of his life" for approximately an hour and 45 minutes prior to arrival. Patient takes a daily baby aspirin. Patient is currently taking a statin, metformin, and Flomax but does not appear to be on any blood pressure medication. Patient's is at the bedside and she is brought in the medications at the patient takes on a daily basis. Patient denies chest pain or shortness of breath. Patient states the pain is sharp and bitemporal. He denies visual changes. Patient denies nausea. Patient states he has some posterior neck pain along with this headache that is not alleviated by anything or aggravated by anything. Differential diagnosis: Hypertensive urgency, hypertensive emergency, malignant hypertension, intracranial hemorrhage, subarachnoid hemorrhage. Medical decision making and plan: Patient has already received head CT by the time this MD initially evaluated the patient at the bedside. The head CT is significant for diffuse subarachnoid hemorrhage. This MD is going to order labetalol to start to bring the patient's blood pressure down below 160 systolic. If this is unsuccessful then we will switch to Cardene. This MD is also going to initiate transfer of the patient to a higher level of care since this facility does not have neuro interventional services, neurology nor neurosurgery. - Related Data Allergies/Adverse Reactions: No Known Allergies Allergy (Unverified 05/08/18 12:58) Home Medications: Metformin, Flomax, Simvastatin Past Medical History - General Information source: Patient - Social History Smoking Status: Unknown if Ever Smoked Cigarette use (# per day): No Chew tobacco use (# tins/day): No Smoking Education Provided: No Frequency of alcohol use: None Drug Abuse: None Family History: Reviewed & Not Pertinent Patient has suicidal ideation: No Patient has homicidal ideation: No - Past Medical History Cardiac Medical History: Reports: Hx Hypertension - medication Endocrine Medical History: Reports: Hx Diabetes Mellitus Type 2 Past Surgical History: Reports: Other - Cataract Review of Systems - Review of Systems Constitutional: No symptoms reported EENT: No symptoms reported Cardiovascular: No symptoms reported Respiratory: No symptoms reported Gastrointestinal: No symptoms reported Genitourinary: No symptoms reported Male Genitourinary: No symptoms reported Musculoskeletal: See HPI Skin: No symptoms reported Hematologic/Lymphatic: No symptoms reported Neurological/Psychological: See HPI, Headaches - anterior forehead -: Yes All other systems reviewed and negative Physical Exam - Vital signs Vitals: Temp Pulse Resp BP Pulse Ox 98.1 F 69 14 192/66 H 100 07/07/19 19:59 07/07/19 19:59 07/07/19 19:59 07/07/19 19:59 07/07/19 19:59 - Notes Notes: Physical Exam: General: Alert, appears well. HEENT: Normocephalic. Atraumatic. PERRL. Extraocular movements intact. Oropharynx clear. Neck: Supple. Non-tender. No carotid bruits Respiratory: No respiratory distress. Clear and equal breath sounds bilaterally. Cardiovascular: Regular rate and rhythm. Abdominal: Normal Inspection. Non-tender. No distension. Normal Bowel Sounds. Back: No gross abnormalities. Extremities: Moves all four extremities. Upper extremities: Normal inspection. Normal ROM. Lower extremities: Normal inspection. No edema. Normal ROM. Neurological: Normal cognition. AAOx4. Normal speech. Psychological: Normal affect. Normal Mood. Skin: Warm. Dry. Normal color. Course - Re-evaluation Re-evalutation: 07/07/19 21:09 Patient is sitting up in bed, alert and oriented x4, GCS of 15. Patient has received 10 mg of labetalol IV which has brought his systolic pressure down to 168. At time at this time will continue to monitor the patient's pressure and give additional small amounts of labetalol if needed while awaiting transport. Diagnosis, results of ER MSE discussed with patient and patient's . All questions were answered. Plan to transfer patient to [facility] for higher level of care discussed with with patient and patient's . They both understand the need for the transfer. - Vital Signs Vital signs: Temp Pulse Resp BP Pulse Ox 98.1 F 72 22 H 220/80 H 100 07/07/19 19:59 07/07/19 20:25 07/07/19 20:25 07/07/19 20:25 07/07/19 20:25 - Laboratory Result Diagrams: 07/07/19 20:34 07/07/19 20:34 Laboratory results interpreted by me: 07/07/19 20:34 RBC 4.15 L Seg Neutrophils % 80.0 H - Consults Dr.Jeffrey Yost Time consulted: 20:49 - Dr. Yost agreed to accept patient for transfer to his facility and agreed with plan to use labetalol and/or Cardene to keep the SBP<160 Reason for consultation: 07/07/19 21:11 Diffuse subarachnoid hemorrhage Critical Care Note - Critical Care Note Total time excluding time spent on procedures (mins): 60 Discharge - Discharge Clinical Impression: Subarachnoid hemorrhage, Hypertensive emergency Condition: Fair Disposition: [facility] Referrals: BRYSON BOSWELL PA-C [Primary Care Provider] - Follow up as needed I personally performed the services described in the documentation, reviewed and edited the documentation which was dictated to the scribe in my presence, and it accurately records my words and actions.
[2019-07-07 21:38] VITALS: BP 170/83
== END 2019-07-07 21:21 | disposition short-term general hospital (02) ==
LOC: ER 19:24
DX: I60.9 Nontraumatic subarachnoid hemorrhage, unspecified (principal); I16.0 Hypertensive urgency; R51 Headache; I10 Essential (primary) hypertension; M54.2 Cervicalgia; E11.9 Type 2 diabetes mellitus without complications
CPT/HCPCS: 99291; 96374; 36415; 85025; 85610; 85730; 80053; 70450; J3490

== ENCOUNTER → 2019-12-01 | Outpatient (CLI) | payer MEDICARE ==
[2019-12-01 09:55] LABS: ALBUMIN 4.3 g/dL (3.5-5.0); ALKALINE PHOSPHATASE 82 U/L (38-126); ANION GAP 6 (5-19); ASPARTATE AMINO TRANSFERASE 37 U/L (17-59); BILIRUBIN,TOTAL 0.8 mg/dL (0.2-1.3); BLOOD UREA NITROGEN 17 mg/dL (7-20); CARBON DIOXIDE 28 mmol/L (22-30); CHLORIDE 104 mmol/L (98-107); CHOLESTEROL 120.64 mg/dL (0-200); GLUCOSE 94 mg/dL (75-110); POTASSIUM 4.9 mmol/L (3.6-5.0); TOTAL PROTEIN 7.9 g/dL (6.3-8.2); TRIGLYCERIDES 133 mg/dL (<150)
[2019-12-01 10:11] LABS: DIRECT LDL 61 mg/dL (<100)
== END ==
LOC: OD 09:00
PROVIDERS: ATTEND Internal Medicine Cardiovascular Disease
DX: E78.00 Pure hypercholesterolemia, unspecified (principal); I10 Essential (primary) hypertension; E03.9 Hypothyroidism, unspecified; Z79.899 Other long term (current) drug therapy
CPT/HCPCS: 36415; 80048; 80061; 80076; 84443

== ENCOUNTER → 2020-03-08 | Outpatient (CLI) | payer MEDICARE ==
[2020-03-08 09:38] LABS: ALBUMIN 4.2 g/dL (3.5-5.0); ALKALINE PHOSPHATASE 87 U/L (38-126); ANION GAP 7 (5-19); ASPARTATE AMINO TRANSFERASE 31 U/L (17-59); BILIRUBIN,TOTAL 0.6 mg/dL (0.2-1.3); BLOOD UREA NITROGEN 22 mg/dL (7-20); CALCIUM 9.8 mg/dL (8.4-10.2); CARBON DIOXIDE 25 mmol/L (22-30); CHLORIDE 106 mmol/L (98-107); CHOLESTEROL 101.82 mg/dL (0-200); GLUCOSE 90 mg/dL (75-110); POTASSIUM 4.5 mmol/L (3.6-5.0); TOTAL PROTEIN 7.8 g/dL (6.3-8.2); TRIGLYCERIDES 87 mg/dL (<150)
[2020-03-08 09:50] LABS: DIRECT LDL 48 mg/dL (<100)
== END ==
LOC: OD 08:26
PROVIDERS: ATTEND Internal Medicine Cardiovascular Disease
DX: E78.00 Pure hypercholesterolemia, unspecified (principal); I10 Essential (primary) hypertension; E03.9 Hypothyroidism, unspecified; Z79.899 Other long term (current) drug therapy
CPT/HCPCS: 36415; 80048; 80061; 80076; 84443

== ENCOUNTER → 2020-09-05 | Outpatient (CLI) | payer MEDICARE ==
[2020-09-05 10:27] LABS: HEMATOCRIT 39.9 % (37.9-51.0); HEMOGLOBIN 13.5 g/dL (13.5-17.0); MEAN CORPUSCULAR HEMOGLOBIN 31.3 pg (27.0-33.4); MEAN CORPUSCULAR HGB CONC 33.7 g/dL (32.0-36.0); MEAN CORPUSCULAR VOLUME 93 fl (80-97); PLATELET COUNT 246 10^3/uL (150-450); RED CELL DISTRIBUTION WIDTH 14.3 % (11.5-14.0)
[2020-09-05 10:51] LABS: ALBUMIN 4.5 g/dL (3.5-5.0); ALKALINE PHOSPHATASE 82 U/L (38-126); ANION GAP 9 (5-19); ASPARTATE AMINO TRANSFERASE 41 U/L (17-59); BILIRUBIN,DIRECT 0.1 mg/dL (0.0-0.4); BILIRUBIN,TOTAL 0.8 mg/dL (0.2-1.3); BLOOD UREA NITROGEN 18 mg/dL (7-20); CARBON DIOXIDE 29 mmol/L (22-30); CHLORIDE 99 mmol/L (98-107); CHOLESTEROL 114.67 mg/dL (0-200); GLUCOSE 89 mg/dL (75-110); TOTAL PROTEIN 8.2 g/dL (6.3-8.2); TRIGLYCERIDES 165 mg/dL (<150)
[2020-09-05 11:02] LABS: DIRECT LDL 50 mg/dL (<100)
== END ==
LOC: OD 09:41
PROVIDERS: ATTEND Internal Medicine Cardiovascular Disease
DX: E55.9 Vitamin D deficiency, unspecified (principal); I10 Essential (primary) hypertension; E03.9 Hypothyroidism, unspecified; E78.00 Pure hypercholesterolemia, unspecified; D72.829 Elevated white blood cell count, unspecified; Z79.899 Other long term (current) drug therapy
CPT/HCPCS: 36415; 80048; 80061; 80076; 82306; 84443; 85027